=== PATIENT | male | born 1940 | race Caucasian/White ===

== ENCOUNTER 2023-11-27 10:58 | Inpatient (IN) | payer OTHER ==
[~2023-11-27] VITALS: Ht 180.3 cm; Wt 99.3 kg
[~2023-11-27 10:58] MED LIST: CITA20; DILT60 PO; FURO40; LEVSOD137 PO; METOPROLOL TART75 MG; Nitrostat0.4 MG; POTCHL10ER
[2023-11-27 11:57] LABS: BASOPHILS ABSOLUTE AUTO 0.07 K/mm3 (0.00-0.23); BASOPHILS PERCENT AUTO 1 % (0-2); EOSINOPHILS ABSOLUTE AUTO 0.06 K/mm3 (0.00-0.68); EOSINOPHILS PERCENT AUTO 1 % (0-6); Hematocrit 43.8 % (37.0-53.0); Hemoglobin 14.3 g/dL (13.5-17.5); IMMATURE GRAN ABSOLUTE AUTO 0.03 K/mm3 (0.00-0.10); IMMATURE GRAN PERCENT AUTO 0 % (0-1); LYMPHOCYTES ABSOLUTE AUTO 1.72 K/mm3 (0.84-5.20); LYMPHOCYTES PERCENT AUTO 19 % (21-46); MONOCYTES ABSOLUTE AUTO 0.89 K/mm3 (0.16-1.47); MONOCYTES PERCENT AUTO 10 % (4-13); Mean Corpuscular HGB 30.4 pg (26.0-34.0); Mean Corpuscular HGB Conc 32.6 g/dL (31.5-36.5); Mean Corpuscular Volume 93 fL (80-100); Mean Platelet Volume 10.9 fL (9.1-12.4); NEUTROPHILS ABSOLUTE AUTO 6.22 K/mm3 (1.96-9.15); NEUTROPHILS PERCENT AUTO 69 % (41-73); Platelet Count 248 K/mm3 (150-400); RDW Coefficient Variation 15.3 % (11.7-14.2); RDW Standard Deviation 52.2 fL (35.1-46.3); Red Blood Cell Count 4.71 M/mm3 (4.30-5.90); White Blood Cell Count 8.99 K/mm3 (4.00-11.30)
[2023-11-27 12:10] LABS: Influenza A Negative (NEGATIVE); Influenza B Negative (NEGATIVE)
[2023-11-27 12:25] LABS: Albumin, Blood 3.4 g/dL (3.4-5.0); Albumin/Globulin Ratio 1.1 (0.8-1.8); Bilirubin, Total 1.3 mg/dL (0.1-1.0); Bun/Creatinine Ratio 10.9 (12.0-20.0); Calcium, Blood 9.5 mg/dL (8.5-10.1); Creatinine, Blood 1.92 mg/dL (0.60-1.20); Globulin, Blood 3.2 g/dL (2.2-4.0); Potassium, Blood 3.9 mmol/L (3.5-5.5); Total Protein, Blood 6.6 g/dL (6.4-8.2)
[2023-11-27 12:26] LABS: SARS-Cov-2 (COVID-19) PCR, MMC NEGATIVE (NEGATIVE)
[2023-11-27] MEDS ORDERED: Inderal 20 mg T20 MG PO (15:15)
[2023-11-27] MEDS ORDERED: FINA5 PO (15:15)
[2023-11-27] MEDS ORDERED: TAMS.4ER PO (15:15)
[2023-11-27 15:20] LABS: CHOL/HDL RATIO 3.9; Cholesterol 146 mg/dL (50-200); HDL Cholesterol 37 mg/dL (>39); LDL/HDL RATIO 2.2; Low Density Lipoprotein Chol 80 mg/dL (0-110); Triglycerides 145 mg/dL (30-160); Very Low Density Lipoprot Chol 29 mg/dL (6-32)
[2023-11-27] MEDS ORDERED: Celexa20 MG PO (17:41)
[2023-11-27] MEDS ORDERED: TERA5 PO (17:42)
[2023-11-27 17:47] VITALS: BP 181/125
--- NOTE | 2023-11-27 17:51 | NUR ---
ADMIT PT ADMITTED TO ROOM 305. ORIENTED TO ROOM. CALL LIGHT IN REACH. DR. BAINS NOTIFIED OF BP 181/125. PT BP ANYWHERE FROM 40-110S. PT STATES HE DOES NOT HAVE AFIB. DR. BAINS NOTIFIED OF THIS FLUCTUATION WELL. AWAITING ORDERS TO BE PLACED FOR BP. OTHERWISE. PT IS PLEASANT & COOPERATIVE. RESTING IN BED. WATCHING TV.
--- NOTE | 2023-11-27 18:35 | NUR ---
SHIFT SUMMARY PT RESTING IN BED AFTER ARRIVING TO FLOOR. BP ELEVATED. DR. BAINS PLACED ORDERS. PT WORRIED ABOUT TAKING METOPROLOL STATING IT MADE HIM ANXIOUS IN THE PAST. DR. BAINS NOTIFIED AND WOULD LIKE TO TO STILL BE GIVEN DUE TO HIS CHF. PT AGREEABLE AND EDUCATED TO NOTIFY STAFF IF HE BECOMES ANXIOUS. SCHEDULED LASIX ALSO GIVEN ORDERED. ONLY 100CC OUTPUT SO FAR. PT ORIENTED & COOPERATIVE. USING URNINAL AT BEDSIDE. TELE IN PLACE RUNNING AFIB AT 83 PER TECH. LS DIM. PT GETS SOB WITH LYING FLAT OR WITH EXERTION. SATING IN THE 90S ON RA WHILE RESTING. PT DENIES SOB AT THIS TIME. DENIES CP CURRENTLY. FAMLIY AT BEDSIDE. CALL LIGHT IN REACH.
[2023-11-27 19:35] LABS: Bun/Creatinine Ratio 10.7 (12.0-20.0); Calcium, Blood 10.1 mg/dL (8.5-10.1); Creatinine, Blood 2.06 mg/dL (0.60-1.20); Potassium, Blood 3.8 mmol/L (3.5-5.5)
[2023-11-27 19:59] VITALS: BP 144/89
[2023-11-28 05:06] VITALS: BP 169/103
[2023-11-28 05:09] LABS: BASOPHILS ABSOLUTE AUTO 0.06 K/mm3 (0.00-0.23); BASOPHILS PERCENT AUTO 1 % (0-2); EOSINOPHILS ABSOLUTE AUTO 0.02 K/mm3 (0.00-0.68); EOSINOPHILS PERCENT AUTO 0 % (0-6); Hematocrit 44.1 % (37.0-53.0); Hemoglobin 14.3 g/dL (13.5-17.5); IMMATURE GRAN ABSOLUTE AUTO 0.03 K/mm3 (0.00-0.10); IMMATURE GRAN PERCENT AUTO 0 % (0-1); LYMPHOCYTES PERCENT AUTO 20 % (21-46); MONOCYTES ABSOLUTE AUTO 0.81 K/mm3 (0.16-1.47); MONOCYTES PERCENT AUTO 10 % (4-13); Mean Corpuscular HGB 30.1 pg (26.0-34.0); Mean Corpuscular HGB Conc 32.4 g/dL (31.5-36.5); Mean Corpuscular Volume 93 fL (80-100); NEUTROPHILS ABSOLUTE AUTO 5.73 K/mm3 (1.96-9.15); NEUTROPHILS PERCENT AUTO 69 % (41-73); Platelet Count 249 K/mm3 (150-400); RDW Coefficient Variation 15.6 % (11.7-14.2); RDW Standard Deviation 52.8 fL (35.1-46.3); Red Blood Cell Count 4.75 M/mm3 (4.30-5.90); White Blood Cell Count 8.35 K/mm3 (4.00-11.30)
--- NOTE | 2023-11-28 05:22 | NUR ---
Shift Summary Mr. Ospina was slept sporadically for short intervals. He gets short of breath with conversation and ambulation but quickly returns to normal at rest. He has bilateral edema in his lower extremities. His toes on both feet are dark red. The skin does varun and quickly return to normal. His pedal pulses are weak. We have tried to monitor his urine output but he has went in the toilet several times. He is very resistant to assistance with toileting. I have instructed him not to go to the bathroom by himself. He agreed and uses his call light appropriately. He had a bowel movement today. He is on tele in [facility] in the 70s. He lives with his who has dementia and is her primary caregiver. Bed in low postion. Call light in reach.
[2023-11-28 06:40] LABS: Albumin, Blood 3.6 g/dL (3.4-5.0); Albumin/Globulin Ratio 1.1 (0.8-1.8); Bun/Creatinine Ratio 11.1 (12.0-20.0); Creatinine, Blood 2.08 mg/dL (0.60-1.20); Globulin, Blood 3.4 g/dL (2.2-4.0); Potassium, Blood 3.7 mmol/L (3.5-5.5)
[2023-11-28 08:07] VITALS: BP 164/108
[2023-11-28 15:20] VITALS: BP 147/95
--- NOTE | 2023-11-28 18:10 | NUR ---
VERY TALKATIVE, ALERT AND ORIENTED X3, PATIENT DENIES NEED FOR CONDOM CATH, INCREASED LASIX TID, PATIENT STILL ONLY VOIDING 200 ML AT A TIME, NO IMPROVEMENT ON PRAVEEN FEET OR ANASARCIA, FLUID RESTRICTION 1500 ML, AND SONS VISITED TODAY, EDUCATED ON ENERGY CONSVERING NEEDS WHEN TALKING OR EATING FOR LONG PERIODS, PLEASANT AND COOPERATIVE, CALL LIGHT WITH IN REACH. WILL RELAY TO PM RN
[2023-11-28 20:31] VITALS: BP 158/116
[2023-11-29 03:35] VITALS: BP 163/106
--- NOTE | 2023-11-29 05:13 | NUR ---
Shift Summary Mr. Ospina is alert and oriented x 4. He becomes short of breath with conversation. He has generalized edema that is 4+ in his legs and feet. He is on tele in atrial fib at 77. He denies pain. He has an IV in his right AC that is saline locked. Bed is in low position call light in reach. Patient is cooperative with care and uses his call light appropriately.
[2023-11-29 05:52] LABS: Bun/Creatinine Ratio 11.3 (12.0-20.0); Calcium, Blood 9.4 mg/dL (8.5-10.1); Creatinine, Blood 2.3 mg/dL (0.60-1.20); Potassium, Blood 3.3 mmol/L (3.5-5.5)
[2023-11-29 07:31] VITALS: BP 147/102
[2023-11-29 15:28] VITALS: BP 150/104
--- NOTE | 2023-11-29 16:31 | NUR ---
TELEMETRY CALLED AND REPORTED THAT THE PATIENT HAS HAD A COUPLE OF SHORT RUNS OF RVR IN THE 150'S. THIS IS OCCURING WHEN THE PATIENT STANDS AT THE BEDSIDE AND USES THE URINAL. ONCE PATIENT IS BACK IN BED RETURNS TO IB IN THE 70'S-80'S. CALLED AND NOTIFIED DR. ESTEBAN.
--- NOTE | 2023-11-29 17:18 | NUR ---
SHIFT SUMMARY: PT IS AN 83 YEAR OLD MALE HERE FOR CHF/FLUID OVERLOAD AND NEW ONSET AFIB. HE IS BEING DIURESED, FLUID RESTRICTED, AND BEGAN TREATMENT FOR HIS A FIB. PATIENT VOICES THAT HE IS FEELING BETTER; IMPROVED SHORTNESS OF BREATH AND SWELLING. HE IS AMBULATORY, BUT BECOMES SHORT OF BREATH WITH EXERTION AND WHEN STANDING AT THE BEDSIDE TO USE THE URINAL HE HAD EPISODES OF RVR (NOTE ENTERED) HIS AND HIS SON CAME BY TODAY AND THE NURSE STILL PHOTOGRAPHER VISITED WITH THEM ALL TOGETHER TO DISCUSS CARE PLANNING (SEE THEIR NOTE FOR FURTHER DETIALS) HE WAS ALSO EVALUTED BY PT AND OT TODAY. HE IS CURRENTLY IN BED, CALL LIGHT WITHIN REACH, NO SIGNS OR SYMPTOMS OF DISTRESS. PLAN OF CARE ONGOING.
[2023-11-29 17:33] LABS: Albumin, Blood 3.4 g/dL (3.4-5.0); Anion Gap 10 mmol/L (6-16); Blood Urea Nitrogen 27 mg/dL (8-24); Bun/Creatinine Ratio 11.7 (12.0-20.0); CO2, Blood 23 mmol/L (21-32); Calcium, Blood 9.6 mg/dL (8.5-10.1); Chloride, Blood 108 mmol/L (98-108); Creatinine, Blood 2.31 mg/dL (0.60-1.20); Glomerular Filtration Rate 28 (60-); Glucose, Blood 101 mg/dL (70-99); Magnesium, Blood 1.8 mg/dL (1.6-2.4); Phosphorus, Blood 3.7 mg/dL (2.5-4.9); Potassium, Blood 3.4 mmol/L (3.5-5.5); Sodium, Blood 141 mmol/L (136-145)
[2023-11-29 17:59] VITALS: BP 133/98
[2023-11-29 19:53] VITALS: BP 111/59
--- NOTE | 2023-11-30 03:31 | NUR ---
Shift Summary Patient is alert and oriented x 4. He continues to have shortness of breath with speaking and activity. This has slightly improved. He is on room air which is his baseline at home. Patient remains on isolation due to RSV. He has edema in both lower extremities. He has an IV in his right AC that flushes without difficulty. He is able to stand at bedside to use the urinal. He refuses to allow staff to assist with use of the urinal. Patient is on telemetry in Afib at 75. His rate increases up to 140 with activity. He did have a run of RVR at 140 when he dropped his call light and was trying to retrieve it. Patient was assisted with his light and his rate went back to the 70s in atrial fib. Call light is in reach and bed is in low position. Patient denies pain.
[2023-11-30 04:27] VITALS: BP 142/97
[2023-11-30 05:31] LABS: Bun/Creatinine Ratio 12.4 (12.0-20.0); Calcium, Blood 9.8 mg/dL (8.5-10.1); Creatinine, Blood 2.25 mg/dL (0.60-1.20); Magnesium, Blood 1.8 mg/dL (1.6-2.4); Potassium, Blood 3.6 mmol/L (3.5-5.5)
[2023-11-30 07:23] VITALS: BP 155/101
[2023-11-30] MEDS ORDERED: ELIQUIS2.5 MG PO (13:09)
[2023-11-30] MEDS ORDERED: JARDIANCE10 MG PO (13:11)
[2023-11-30] MEDS ORDERED: METO50ER PO (13:12)
[2023-11-30] MEDS ORDERED: SPIR25 PO (13:12)
[2023-11-30] MEDS ORDERED: FURO40 PO (13:13)
[2023-11-30] MEDS ORDERED: FURO20 PO (13:13)
[2023-11-30] MEDS ORDERED: LOSA25 PO (13:13)
[2023-11-30] MEDS ORDERED: POTA10T PO (13:15)
--- NOTE | 2023-11-30 13:42 | NUR ---
DISCHARGE NOTE: DISCHARGE DISCUSSED WITH PATIENT AND PATIENT'S SON DON. PATIENT GOT DRESSED, COLLECTED HIS BELONGINGS, AND WAS TRANSFERRED VIA WHEELCHAIR BY MEDICAL STAFF TO SON'S VEHICLE. IV AND TELEMETRY WERE REMOVED. NO SIGNS OR SYMPTOMS OF DISTRESS DURING DISCHARGE.
== END 2023-11-30 13:40 | disposition home or self-care (01) | DRG 291 ==
LOC: ER 10:58 → MEDS 14:10
PROVIDERS: Physician Assistant; Student in an Organized Health Care Education/Training Program; ADMIT Internal Medicine
DX: I11.0 Hypertensive heart disease with heart failure (principal); I50.21 Acute systolic (congestive) heart failure; J96.01 Acute respiratory failure with hypoxia; I48.91 Unspecified atrial fibrillation; N40.0 Benign prostatic hyperplasia without lower urinary tract symptoms; I25.10 Atherosclerotic heart disease of native coronary artery without angina pectoris; F32.A Depression, unspecified; Z66 Do not resuscitate; E03.9 Hypothyroidism, unspecified; I08.1 Rheumatic disorders of both mitral and tricuspid valves; G47.33 Obstructive sleep apnea (adult) (pediatric); I27.20 Pulmonary hypertension, unspecified; J45.909 Unspecified asthma, uncomplicated; I50.810 Right heart failure, unspecified; B97.4 Respiratory syncytial virus as the cause of diseases classified elsewhere; Z88.0 Allergy status to penicillin; Z79.890 Hormone replacement therapy; Z79.899 Other long term (current) drug therapy; Z98.1 Arthrodesis status
CPT/HCPCS: 36415; 71046; 80048; 80053; 80061; 80069; 83735; 83880; 84443; 84484; 85025; 87804; 87807; 93005; 93010; 96374; 97110; 97162; 97166; 97530; 97535; 99285-25; A9270; C8929; J0360; J1650; J1940; Q9957; U0002